=== PATIENT | female | born 1990 | race Caucasian/White ===

== ENCOUNTER 2016-07-01 21:31 | Inpatient (IN) | payer BC ==
[2016-07-01 22:15] LABS: Urine Bilirubin Negative (NEGATIVE); Urine Blood Negative /ul (NEGATIVE); Urine Ketone 5 mg/dL (NEGATIVE); Urine Nitrite Negative (NEGATIVE); Urine Protein Negative (NEGATIVE); Urine Specific Gravity 1.015 SP.GR. (1.005-1.010); Urine Urobilinogen Normal (NORMAL)
[2016-07-01] MEDS ORDERED: RINGERS SOLUTION,LACTATED 1,000 ML IV ONE (22:23)
[2016-07-01 22:32] LABS: Urine Appearance Clear; Urine Color Yellow
[2016-07-01 22:33] LABS: Urine Bacteria None Seen; Urine RBC None Seen /hpf (0-5); Urine WBC None Seen /hpf (0-5)
[2016-07-01 23:20] LABS: Hematocrit 35.3 % (37.0-47.0); Hemoglobin 12.7 gm/dL (12.5-16.0); Mean Cell Volume 91.9 fl (78-100); Mean Corpuscular Hemoglobin 33.1 pg (27-31); Mean Platelet Volume 9.5 fl (6.0-9.5); Neutrophil # 11.6 K/mm3 (1.3-6.0); Neutrophil % 80.7 % (42-75.0); Platelet Count 164 K/mm3 (150-450); Red Blood Count 3.84 M/mm3 (4.2-5.4); Red Cell Distribution Width 11.9 % (11.5-14.0); White Blood Count 14.4 K/mm3 (4.0-10.5)
[2016-07-01] MEDS: DEXTROSE 5%-LACTATED RINGERS 1,000 ML IV PRN (23:22)
[2016-07-02] MEDS ORDERED: RINGERS SOLUTION,LACTATED 1,000 ML IV ONE (00:13)
[2016-07-02] MEDS ORDERED: RINGERS SOLUTION,LACTATED 1,000 ML IV PRN (00:13)
[2016-07-02] MEDS ORDERED: LIDOCAINE HCL 50 ML VIAL PERI PRN (00:13)
[2016-07-02] MEDS ORDERED: OXYTOCIN/DEXTROSE 5%-WATER 30 UNITS/500 ML BAG IV ONE ×2 (00:13→02:11)
[2016-07-02] MEDS ORDERED: BUPIVACAINE HCL/0.9 % NACL/PF 250 ML EP PRN (00:32)
--- NOTE | 2016-07-02 00:36 | OR ---
Anesthesia Pre Procedure Eval Date of Service: 07/02/16 Pre Procedure Evaluation: Anesthesia Pre Procedure Evaluation Heart Rate:68 Blood Pressure:119/73 Termperature:36.6 Respiratory Rate:20 SaO2:98 DATE: 07/02/2016 TIME: 34 INDICATIONS: Active labor, labor pain PAST MEDICAL HISTORY: Primipara patient in active labor requesting labor analgesia EXAM: Heart regular; lungs clear ASSESSMENT OF MEDICAL STATUS: Appropriate candidate for labor analgesia PLANNED PROCEDURE: Combination spinal epidural for labor analgesia Home Medications: HOME MEDICATIONS Pnv95/Ferrous Fumarate/FA [ Tablet] 1 each PO DAILY 07/01/16 [Last Taken 07/01/16]
[2016-07-02] MEDS ORDERED: fentaNYL CITRATE/PF 50 MCG/ML AMPUL IT SCH (00:45)
--- NOTE | 2016-07-02 00:53 | OR ---
Anesthesia Procedure Note - Anesthesia Procedure Note Date of Service: 07/02/16 Narrative: 07/02/16 00:51 ANESTHESIA PROCEDURE NOTE Date of Procedure: 07/02/2016 Time of procedure: 00 30. Performed by: FRANK Manning CRNA, MSN Stone Polisher: Kristina Burgess RN. Preprocedure diagnosis: Active labor, labor pain. Post procedure diagnosis: Same. Procedure: Labor Epidural Placement L4 5. Indications: Labor pain. Findings: See below. Details of the procedure: The patient was placed on the side of the bed in sitting position. The patient was prepped with DuraPrep and draped in a sterile fashion. Lidocaine 1% was infiltrated to the skin and subcutaneous tissues at the level of the L4-L5 interspace. The epidural space was identified using a 18-gauge Tuohy needle with [id number] technique. Fentanyl 20 g was given intrathecally the intrathecal needle was then removed and the epidural catheter was threaded approximately 4 cm, the epidural needle was then removed, and after careful aspiration 3 mL of 1.5% lidocaine with 1-200 ,000 epinephrine was injected without change in maternal heart rate or sensorium. The catheter was then taped in place. EBL: Minimal. Fluids: N/A. Specimen: N/A. Post procedure condition: The patient tolerated the procedure well with good relief. No complications were noted. Thank you for this consultation. Cliff Olivas CRNA, ARNP, MSN
[2016-07-02] MEDS ORDERED: DEXTROSE 5%-LACTATED RINGERS 1,000 ML IV PRN (01:03)
[2016-07-02] MEDS: DEXTROSE 5%-LACTATED RINGERS 1,000 ML IV PRN (01:09)
[2016-07-02] MEDS ORDERED: HYDROCORTISONE 30 APPL TUBE TP PRN (02:11)
[2016-07-02] MEDS ORDERED: oxyCODONE HCL/ACETAMINOPHEN 1 TAB TABLET PO PRN ×2 (02:11)
[2016-07-02] MEDS ORDERED: GLYCERIN/WITCH HAZEL LEAF 40 APPL BOX TP PRN (02:11)
[2016-07-02] MEDS ORDERED: BENZOCAINE/MENTHOL 81 SPRAY CAN TP PRN (02:11)
[2016-07-02] MEDS ORDERED: BISACODYL 10 MG SUPP.RECT RC PRN (02:11)
[2016-07-02] MEDS ORDERED: SENNOSIDES 8.6 MG TABLET PO PRN (02:11)
--- NOTE | 2016-07-02 02:11 | OR ---
Operative Report - Dictated Report Narrative: Spontaneous Vaginal Delivery Note: 25 yo, CF, G1 at 37 1/7 weeks, admitted in labor. dilated to 3-4 cm at admission. GBS was negative. Progressed to 8 cm and received epidural and soon dilated fully with a bulging bag of water. AROM performed with clear fluid before delivery. Pushed with contractions and descent. Head delivered in OA over the perineum. No nuchal cord noted. The anterior shoulder delivered, followed by the posterior shoulder and the rest of the baby without difficulty. Baby cried at perineum. Cord was clamped, and cut by father of baby. Baby placed on maternal abdomen for drying and care by the nursing. Cord blood was also obtained. Placenta delivered intact with 3 vessel cord. Pitocin drip started after placenta delivered. Exam of the perineum, vaginal and cervix revealed a second degree perineum laceration. This was repaired with 3-0 Vicryl suture in a normal fashion. Small periurethral tear on the left was hemostatic and no repair needed. Fundus was massaged and firm. Bleeding was minimal. Mother and baby tolerated the delivery well. EBL 150 ml. Infant: male, 2691 grams, 5 lbs and 14.9 oz. 9/9. Time of delivery: 01:30. Lanie Mederos MD History for Definition: * The number of deliveries resulting in a live the patient experienced prior to current hospitalization * The previous delivery of live twins or any live multiple gestation is considered one live event. *If primagravida or nulliparous is documented select zero for the number of previous live births. Live Events: 0
[2016-07-02] MEDS: IBUPROFEN 800 MG TABLET PO PRN ×3 (04:12→22:25)
[2016-07-02] MEDS: DOCUSATE SODIUM 100 MG CAPSULE PO SCH ×2 (08:51→21:04)
--- NOTE | 2016-07-03 05:41 | PN ---
Subjective - Date and Time Seen Date: 07/03/16 Time: 05:40 Objective - Vitals Vitals: Last Vital Signs Temp 36.6 C 07/03/16 01:00 Pulse 80 07/03/16 01:00 Resp 18 07/03/16 01:00 BP 97/53 07/03/16 01:00 Pulse Ox 100 07/03/16 01:00 Patient denies complaints. Breast-feeding Lochia wnl Abdomen - soft, nontender Uterus - firm, at umbilicus - 1 No calf tenderness Impression: day #1 - s/p spontaneous vaginal delivery. Plan: Continue routine care
[2016-07-03] MEDS: IBUPROFEN 800 MG TABLET PO PRN ×2 (08:30→20:49)
[2016-07-03] MEDS: DOCUSATE SODIUM 100 MG CAPSULE PO SCH ×2 (08:31→20:50)
--- NOTE | 2016-07-04 07:32 | PN ---
Subjective - Date and Time Seen Date: 07/04/16 Time: 07:31 Objective - Vitals Vitals: Last Vital Signs Temp 36.6 C 07/04/16 00:41 Pulse 55 L 07/04/16 00:41 Resp 18 07/04/16 00:41 BP 105/73 07/04/16 00:41 Pulse Ox 98 07/04/16 00:41 Patient denies complaints. Lochia wnl Abdomen - soft, nontender Uterus - firm, at umbilicus - 2 No calf tenderness Impression: day #2 - s/p spontaneous vaginal delivery. Plan: Routine discharge instructions
[2016-07-04] MEDS: DOCUSATE SODIUM 100 MG CAPSULE PO SCH (08:28)
[2016-07-04 08:41] VITALS: BP 109/69
== END 2016-07-04 12:30 | disposition home or self-care (01) | DRG 775 ==
LOC: OBCLINIC 21:31 → OBSVTOIN 23:18 → OB 23:18
PROVIDERS: ADMIT Obstetrics & Gynecology; ATTEND Obstetrics & Gynecology
PROC: 10E0XZZ Delivery of Products of Conception, External Approach (ICD-10-PCS; principal; 2016-07-02)
PROC: 0KQM0ZZ Repair Perineum Muscle, Open Approach (ICD-10-PCS; 2016-07-02)
PROC: 4A1HXCZ Monitoring of Products of Conception, Cardiac Rate, External Approach (ICD-10-PCS; 2016-07-02)
PROC: 10907ZC Drainage of Amniotic Fluid, Therapeutic from Products of Conception, Via Natural or Artificial Opening (ICD-10-PCS; 2016-07-02)
DX: O70.1 Second degree perineal laceration during delivery (principal); Z37.0 Single live birth; Z3A.37 37 weeks gestation of pregnancy

== ENCOUNTER 2019-03-10 11:48 | Inpatient (IN) ==
[2019-03-10] MEDS ORDERED: DEXTROSE 5%-LACTATED RINGERS 1,000 ML IV PRN ×2 (12:00→12:12)
[2019-03-10] MEDS ORDERED: RINGER'S SOLUTION,LACTATED 1,000 ML IV ONE (12:12)
[2019-03-10] MEDS ORDERED: OXYTOCIN/DEXTROSE 5%-WATER 30 UNITS/500 ML BAG IV ONE (12:12)
[2019-03-10] MEDS ORDERED: ONDANSETRON 4 MG TAB.RAPDIS PO PRN (12:12)
[2019-03-10] MEDS ORDERED: PENICILLIN G POTASSIUM 5 MILLIONUNT in DEXTROSE 5 % IN WATER 100 ML IV ONE ×2 (13:10)
[2019-03-10 14:13] LABS: Cocaine Ur Negative (NEGATIVE); Urine Barbiturate Negative (NEGATIVE); Urine Benzodiazepines Negative (NEGATIVE); Urine Opiates Negative (NEGATIVE); Urine PCP Negative (NEGATIVE); Urine THC Negative (NEGATIVE)
[2019-03-10] MEDS: PENICILLIN G POTASSIUM 2.5 MILLIONUNT in DEXTROSE 5 % IN WATER 100 ML IV SCH ×4 (17:27→21:13)
--- NOTE | 2019-03-10 21:53 | HP ---
Chief Complaint - Chief Complaint Date of Service: 03/10/19 Time of Service: 21:42 Chief Complaint: induction of labor for IUGR History of Present Illness: 28 yo at 38 weeks presents to L&D for induction of labor due to IUGR. This complicated by asthma (mild uncomplicated) and IUGR vs SGA. Rh positive Rubella immune GBS positive Medical History (Updated 08/28/18 @ 11:53 by Mt Dickens DO) Asthma Onset Date: ~1997 Body piercing Onset Date: Unknown Wears glasses Onset Date: Unknown occasionally Small for gestational age fetus Onset Date: ~2017 Surgical History: Surgical History (Updated 08/28/18 @ 08:59 by Sky Rosales RN) [place] teeth extracted Onset Date: Unknown Family History: Family History (Updated 08/28/18 @ 09:01 by Sky Rosales RN) Mother Cancer skin Hyperlipemia Hypertension Thyroid disease Father Hyperlipemia Grandfather Pulmonary embolism Grandfather CAD (coronary artery disease) Diabetes Grandmother Hypertension Social History: (Last Reviewed 03/09/19 @ 09:07 by Gudelia Hastings RN) Social History: adopted: No shelter: No Marital status: household members: spouse, children number of children: 1 current occupational status: employed current occupation: RN current occupational exposures/hazards: No Highest education level completed: Bachelor's degree Sexually Active: Yes Service: No Tobacco: Smoking Status: Never smoker Alcohol: alcohol intake: current alcohol intake frequency: a few times a week details: No alcohol since + UPT Substance Use: substance use type: does not use Dietary Habits: caffeine: Yes caffeine comment: 1-2/wk Exercise: frequency: 3-4 times per week Shari/Yarsani: agree to transfusion: Yes Review Of Systems (GEN) - Review of Systems Generalized/Overall Review: Present: No Symptoms Reported EENTM: Present: No Symptoms Reported Respiratory: Present: No Symptoms Reported Cardiac: Present: No Symptoms Reported Abdominal: Present: No Symptoms Reported Genitourinary: Present: No Symptoms Reported Musculoskeletal: Present: No Symptoms Reported Neurological: Present: No Symptoms Reported Skin: Present: No Symptoms Reported Endocrine: Present: No Symptoms Reported Allergies/Adverse Reactions: Allergies Allergy/AdvReac Type Severity Reaction Status Date / Time No Known Allergies Allergy Verified 03/09/19 08:59 Home Medications: HOME MEDICATIONS Acetaminophen [Tylenol] 1,000 mg PO PRN PRN 03/10/19 [Last Taken Unknown] Vits96/Iron Fum/Folic [ S] 1 tab PO DAILY 03/10/19 [Last Taken Unknown] Exam - Exam Vital Signs: Vital Signs - Last Taken Temp 36.8 C 03/10/19 12:00 Pulse 66 03/10/19 12:00 Resp 16 03/10/19 12:00 BP 118/76 03/10/19 12:00 Pulse Ox 100 03/10/19 12:00 Constitutional: Present: Alert, Oriented x3, Cooperative, No distress ENT Exam: Present: hearing grossly normal Neck: Present: trachea midline Breasts: Present: Exam deferred Respiratory: Present: lungs clear, no respiratory distress Cardiovascular/Chest: Present: regular rate, rhythm Abdomen: Present: soft, nontender, no rebound tenderness, other - gravid Extremity: Present: non-tender, no pedal edema, no calf tenderness Skin Exam: Present: normal color, warm/dry, no cyanosis Neurologic: Present: alert, normal mood/affect, oriented x 3 Appearance: Present: appropriate appearance, appropriate insight Eye contact: Present: cooperative, good eye contact Thoughts: Present: normal thought pattern, normal mood /affect Diagnostic Studies: Laboratory Results Negative (NEGATIVE) 03/10/19 13:33 Negative (NEGATIVE) 03/10/19 13:33 Ur Phencyclidine Scrn Negative (NEGATIVE) 03/10/19 13:33 Urine Amphetamine Negative (NEGATIVE) 03/10/19 13:33 U Benzodiazepines Scrn Negative (NEGATIVE) 03/10/19 13:33 Negative (NEGATIVE) 03/10/19 13:33 Negative (NEGATIVE) 03/10/19 13:33 NST reactive Assessment/Plan - Assessment/Plan (1) Encounter for induction of labor Assessment: Admit for induction of labor. Epidural PRN. IV PCN per GBS protocol. Problem: Acute (2) Group B Streptococcus carrier state affecting Problem: Acute
--- NOTE | 2019-03-10 21:58 | PN ---
Progess Note - Interim Date: 03/10/19 Time: 21:54 Narrative: 03/10/19 21:54 Patient rating her contractions as mild Vital signs stable. Pitocin at 10 mu/min. FHT: 130 baseline, reassuring contractions q 2-3 min Cervix: 2/90/-2, AROM-clear at 2130 Impression: Intrauterine at 38 weeks in labor Plan: Continue present plan
[2019-03-10] MEDS ORDERED: BUPIVACAINE HCL/0.9 % NACL/PF 250 ML EP PRN (22:43)
[2019-03-10] MEDS ORDERED: ONDANSETRON HCL/PF 2 MG/ML VIAL IV PRN (22:43)
[2019-03-10] MEDS ORDERED: NALOXONE HCL 1 MG/1 ML SYRG IV PRN (22:43)
[2019-03-10] MEDS ORDERED: fentaNYL CITRATE/PF 50 MCG/ML AMPUL IT SCH (22:45)
[2019-03-10] MEDS ORDERED: TERBUTALINE SULFATE 1 MG/ML VIAL ONE (22:49)
--- NOTE | 2019-03-10 23:58 | ANES ---
Post Anesthesia Discharge - Transfer of Care Transfer of Care handoff given to nurse: Yes - Anesthesia Post Op Note Anesthesia Post Op Note: Care transferred to OB RN
--- NOTE | 2019-03-10 23:58 | ANES ---
Anesthesia Pre Procedure Eval Vitals/Labs: Last Vital Signs Temp 36.8 C 03/10/19 12:00 Pulse 66 03/10/19 12:00 Resp 16 03/10/19 12:00 BP 118/76 03/10/19 12:00 Pulse Ox 100 03/10/19 12:00 HOME MEDICATIONS Acetaminophen [Tylenol] 1,000 mg PO PRN PRN 03/10/19 [Last Taken Unknown] Vits96/Iron Fum/Folic [ S] 1 tab PO DAILY 03/10/19 [Last Taken Unknown] Allergies/Adverse Reactions: Allergies Allergy/AdvReac Type Severity Reaction Status Date / Time No Known Allergies Allergy Verified 03/09/19 08:59 - Planned Procedure Planned Procedure: MEDICAL INDUCTION IUGR 38 WKS Medication List Reviewed:: Yes Allergies Verified: Yes Medical History (Updated 03/10/19 @ 21:53 by Mt Dickens DO) Asthma Onset Date: ~1997 Body piercing Onset Date: Unknown Wears glasses Onset Date: Unknown occasionally Small for gestational age fetus Onset Date: ~2016 Surgical History (Updated 03/10/19 @ 21:53 by Mt Dickens DO) [place] teeth extracted Onset Date: Unknown Family History (Updated 08/28/18 @ 09:01 by Sky Rosales RN) Mother Cancer skin Hyperlipemia Hypertension Thyroid disease Father Hyperlipemia Grandfather Pulmonary embolism Grandfather CAD (coronary artery disease) Diabetes Grandmother Hypertension - Family Anesthesia History Family History:: no untoward family reactions to anesthesia - Airway/Neck/Teeth Within Normal Limits:: Yes Teeth Condition: intact Neck Exam: full range of motion Mallampatti Score: 1 Thyromental (T-M) distance: > 6 cm Mandibulo Hyoid distance: > 3 cm - Respiratory Respiratory Physical: lungs clear Smoking Status: Never smoker Sleep Apnea currently treated: No Sleep Apnea by current assessment: No - Cardiovascular Tolerate Activity: Good Heart Sounds: S1 & S2, Regular - Anesthesia Assessment and Plan ASA Class: PS, I, E Anesthesia Type Plan: Epidural Planned difficult intubation/equipment available: No
--- NOTE | 2019-03-10 23:58 | ANES ---
Post Anesthesia Assessment - Vital Signs Vitals: Last Vital Signs Temp 36.8 C 03/10/19 12:00 Pulse 66 03/10/19 12:00 Resp 16 03/10/19 12:00 BP 118/76 03/10/19 12:00 Pulse Ox 100 03/10/19 12:00 Airway Patency: Normal - Mental Status Level Of Consciousness: Awake - Pain Level Pain Score: 2 - N/V Assessment Nausea/Vomiting Presence: None Dehydration:: No
--- NOTE | 2019-03-11 00:01 | ANES ---
Anesthesia Procedure Note Procedure Note: ANESTHESIA PROCEDURE NOTE Date of Procedure: 03/10/2019 Time of procedure: 2339. Performed by: Jim Santos CRNA Microstrategy Architect Developer: None. Preprocedure diagnosis: Active labor. Post procedure diagnosis: Same. Procedure: Insertion of labor epidural. Indications: The patient is a 28-year-old multigravida female in active labor requesting labor epidural for pain management. Findings: See below. Details of the procedure: The patient was placed in a sitting position. Back was prepped with DuraPrep. Patient was then draped in a sterile fashion. Lidocaine 1% was infiltrated to the skin and subcutaneous tissues at the level of the L3 4 interspace. The epidural space was identified using a 18-gauge Tuohy needle with [id number] technique. 20 mcg fentanyl was given intrathecally using a 27 ga. spinal needle. Epidural catheter was inserted without difficulty. Negative test dose was elicited using 5 mL of 1.5% preservative-free lidocaine plus epinephrine 1 200,000. The epidural catheter was then taped and secured in place. EBL: Minimal. Fluids: N/A. Specimen: N/A. Post procedure condition: The patient tolerated the procedure well. No complications were noted. Thank you for this consultation. eSals CRNA
[2019-03-11] MEDS ORDERED: BENZOCAINE/MENTHOL 81 SPRAY CAN TP PRN (00:34)
[2019-03-11] MEDS ORDERED: OXYTOCIN/DEXTROSE 5%-WATER 30 UNITS/500 ML BAG IV ONE (00:34)
[2019-03-11] MEDS ORDERED: IBUPROFEN 800 MG TABLET PO PRN (00:34)
[2019-03-11] MEDS ORDERED: GLYCERIN/WITCH HAZEL LEAF 40 APPL BOX TP PRN (00:34)
[2019-03-11] MEDS ORDERED: HYDROCORTISONE 30 APPL TUBE TP PRN (00:34)
[2019-03-11] MEDS ORDERED: SENNOSIDES 8.6 MG TABLET PO PRN (00:34)
[2019-03-11] MEDS ORDERED: oxyCODONE HCL/ACETAMINOPHEN 1 TAB TABLET PO PRN ×2 (00:34)
[2019-03-11] MEDS ORDERED: BISACODYL 10 MG SUPP.RECT RC PRN (00:34)
--- NOTE | 2019-03-11 00:38 | OR ---
Operative Report - Dictated Report Narrative: Spontaneous vaginal delivery of vigorously crying viable male at 0010 on 03/11/2019 with Apgars 8 9, weighing 2589 g in JEANNE position. Cord clamping delayed approximately 1 minute Placenta delivered complete, intact, with three vessel cord Estimated blood loss: Less than 50 ml Anesthesia: Epidural Lacerations: 1 cm first-degree vaginal laceration no repair needed. History for MU History for Definition: * The number of deliveries resulting in a live the patient experienced prior to current hospitalization * The previous delivery of live twins or any live multiple gestation is considered one live event. *If primagravida or nulliparous is documented select zero for the number of previous live births. Live Events: Live Events: 1
[2019-03-11] MEDS: DOCUSATE SODIUM 100 MG CAPSULE PO SCH ×2 (09:04→21:13)
[2019-03-11] MEDS: IBUPROFEN 800 MG TABLET PO PRN (09:05)
[2019-03-12] MEDS: IBUPROFEN 800 MG TABLET PO PRN ×3 (03:29→21:55)
--- NOTE | 2019-03-12 07:20 | PN ---
Subjective - Date and Time Seen Date: 03/12/19 Time: 07:20 Objective - Vitals Vitals: Last Vital Signs Temp 36.4 C 03/12/19 06:58 Pulse 70 03/12/19 06:58 Resp 16 03/12/19 06:58 BP 105/64 03/12/19 06:58 Pulse Ox 99 03/12/19 06:58 Patient denies complaints. Lochia wnl abdomen - soft, nontender Uterus -firm, at umbilicus - 1 no calf tenderness Impression: day #1 - s/p spontaneous vaginal delivery. Plan: Continue routine care Assessment/Plan - Problems/Diagnosis (1) Encounter for induction of labor Problem: Acute (2) Group B Streptococcus carrier state affecting Problem: Acute
[2019-03-12] MEDS: DOCUSATE SODIUM 100 MG CAPSULE PO SCH ×2 (11:49→20:42)
[2019-03-13 07:08] VITALS: BP 108/73
--- NOTE | 2019-03-13 08:32 | PN ---
Subjective - Date and Time Seen Date: 03/13/19 Time: 08:32 Objective - Vitals Vitals: Last Vital Signs Temp 36.3 C 03/13/19 07:02 Pulse 61 03/13/19 07:02 Resp 18 03/13/19 07:02 BP 108/73 03/13/19 07:02 Pulse Ox 98 03/13/19 07:02 Patient denies complaints. Breast-feeding Lochia wnl abdomen - soft, nontender Uterus -firm, at umbilicus - 2 no calf tenderness Impression: day #2 - s/p spontaneous vaginal delivery. Plan: Routine discharge instructions Assessment/Plan - Problems/Diagnosis (1) Encounter for induction of labor Problem: Acute (2) Group B Streptococcus carrier state affecting Problem: Acute
== END 2019-03-13 11:30 | disposition home or self-care (01) | DRG 807 ==
LOC: OB 11:48
PROVIDERS: ADMIT Obstetrics & Gynecology; ATTEND Obstetrics & Gynecology
CPT/HCPCS: 59025; 80307; 88307